=== PATIENT | female | born 1985 | race Caucasian/White ===

== ENCOUNTER 2021-12-23 09:11 | Day surgery (SDC) | payer OTHER, SELFPAY ==
[~2021-12-23] VITALS: Ht 165.1 cm; Wt 65.9 kg
[~2021-12-23 09:11] MED LIST: ACETAMINOPHEN 650 MG SUPP PR ONE
[2021-12-23] MEDS ORDERED: LR 1,000 ML IV SCH (09:40)
[2021-12-23 09:58] LABS: HEMOGLOBIN 14.2 g/dl (12.0-15.5); MEAN CORPUSCULAR VOLUME 93.9 fl (80.0-96.0); PLATELET COUNT, AUTOMATED 198 10^3/uL (150-450); RED BLOOD COUNT 4.58 10^6/uL (4.00-5.40); WHITE BLOOD COUNT 5.7 10^3/uL (4.0-10.0)
[2021-12-23 10:31] LABS: BLOOD UREA NITROGEN 11 MG/DL (7-18); CALCIUM LEVEL 9.1 MG/DL (8.5-10.1); CARBON DIOXIDE LEVEL 27 MEQ/L (21-32); CHLORIDE LEVEL 109 MEQ/L (98-107); CREATININE FOR GFR 0.76 MG/DL (0.55-1.30); GLOMERULAR FILTRATION RATE > 60.0 (>60); GLUCOSE, FASTING 91 MG/DL (70-100); HCG, SERUM QUANTITATIVE < 1.0 MIU/ML; SODIUM LEVEL 138 MEQ/L (136-145)
[2021-12-23] MEDS ORDERED: ROCURONIUM BROMIDE 50 MG/5 ML VIAL As Ordered ONE (12:03)
[2021-12-23] MEDS ORDERED: LIDOCAINE 2% INJ 100 MG/5 ML SYRINGE As Ordered ONE (12:03)
[2021-12-23] MEDS ORDERED: propofoL 200 MG/20 ML VIAL As Ordered ONE (12:03)
[2021-12-23] MEDS ORDERED: fentaNYL 100 MCG/2 ML INJECTION As Ordered ONE (12:04)
[2021-12-23] MEDS ORDERED: MIDAZOLAM INJ 2MG/2ML VIAL (J2250 PER 1MG) As Ordered ONE (12:04)
[2021-12-23] MEDS ORDERED: dexameTHASONE 4 MG/ML 1ML VIAL (J1100 PER 1MG) As Ordered ONE (12:05)
[2021-12-23] MEDS ORDERED: KETOROLAC 60MG 2ML VIAL As Ordered ONE ×2 (12:05→13:18)
[2021-12-23] MEDS ORDERED: SUGAMMADEX SODIUM 500 MG/5 ML VIAL (BRIDION) As Ordered ONE (12:05)
[2021-12-23] MEDS ORDERED: ACETAMINOPHEN 650 MG SUPP As Ordered ONE (12:33)
[2021-12-23] MEDS ORDERED: BUPIVACAINE HCL 0.5% 30ML VIAL As Ordered ONE (12:33)
[2021-12-23] MEDS ORDERED: NS 1,000 ML IV SCH (14:00)
[2021-12-23] MEDS ORDERED: ONDANSETRON 4MG 2ML VIAL IV PRN (14:00)
[2021-12-23] MEDS ORDERED: fentaNYL 100 MCG/2 ML INJECTION IV PRN (14:00)
[2021-12-23] MEDS ORDERED: oxyCODONE 5MG TAB PO PRN (14:00)
[2021-12-23] MEDS ORDERED: MEPERIDINE INJ 25 MG/ML VIAL (J2175) IV PRN (14:00)
[2021-12-23 15:54] VITALS: BP 111/64
== END 2021-12-23 16:30 | disposition home or self-care (01) ==
LOC: M SDC 09:11
PROVIDERS: ATTEND Obstetrics & Gynecology
DX: N93.9 Abnormal uterine and vaginal bleeding, unspecified (principal); N94.10 Unspecified dyspareunia
CPT/HCPCS: 36415; 58301; 58558; 58661; 80048; 84702; 85027; 88300; 88302; 88305; J1100; J1885; J2250; J3010